=== PATIENT | female | born 1990 | race Caucasian/White ===

== ENCOUNTER → 2018-06-05 | Emergency (ER) | payer OTHER ==
[~2018-06-05] VITALS: Ht 149.9 cm; Wt 65.3 kg
[~2018-06-05] MED LIST: PRENATAL + DHA1 EAC1
== END | disposition home or self-care (01) ==
LOC: ER 18:57
DX: O20.0 Threatened abortion (principal); Z34.81 Encounter for supervision of other normal pregnancy, first trimester

== ENCOUNTER 2021-11-14 09:15 | Inpatient (IN) | payer OTHER ==
[~2021-11-14] VITALS: Ht 149.9 cm; Wt 3.2 kg
[2021-11-14] MEDS ORDERED: VITAMIN D PO (11:11)
[2021-11-14] MEDS ORDERED: FOLIC ACID PO (11:12)
[2021-11-17] MEDS ORDERED: FOLIC ACID1 MG (11:19)
[2021-11-17] MEDS ORDERED: VITAMIN D3125 MC2 (11:20)
== END 2021-11-19 15:09 | disposition home or self-care (01) | DRG 785 ==
LOC: OB/GYN 11-16 05:55 → O/R 11-16 05:55 → OB/GYN 11-16 09:15
PROVIDERS: ADMIT Obstetrics & Gynecology; ATTEND Obstetrics & Gynecology
PROC: 0UB70ZZ Excision of Bilateral Fallopian Tubes, Open Approach (ICD-10-PCS; 2021-11-16)
PROC: 4A1HXCZ Monitoring of Products of Conception, Cardiac Rate, External Approach (ICD-10-PCS; 2021-11-16)
PROC: 10D00Z1 Extraction of Products of Conception, Low, Open Approach (ICD-10-PCS; principal; 2021-11-16 13:00)
DX: O34.211 Maternal care for low transverse scar from previous cesarean delivery (principal); Z3A.39 39 weeks gestation of pregnancy; Z37.0 Single live birth; Z20.822 Contact with and (suspected) exposure to COVID-19; Z30.2 Encounter for sterilization